=== PATIENT | female | born 1965 | race Caucasian/White ===

== ENCOUNTER 2017-03-21 09:15 | Outpatient (CLI) | payer OTHER ==
--- NOTE | 2017-03-21 11:49 | RAD ---
LEFT HIP TWO VIEWS HISTORY: Left hip pain. Trochanteric bursitis. FINDINGS: No fracture, dislocation, or bony destruction is identified. No significant osteoarthritic changes are seen. POS: [facility]
--- NOTE | 2017-03-21 11:50 | RAD ---
RIGHT HIP TWO VIEWS HISTORY: Right hip pain. Trochanteric bursitis. FINDINGS: No fracture, dislocation, or bony destruction is seen. Minimal degenerative changes are noted. POS: [facility]
== END 2017-03-21 09:16 | disposition home or self-care (01) ==
LOC: BURRAD 09:15
PROVIDERS: ATTEND Family Medicine
DX: M70.61 Trochanteric bursitis, right hip (principal); M70.62 Trochanteric bursitis, left hip